=== PATIENT | male | born 2000 | race Caucasian/White ===

== ENCOUNTER 2023-03-14 08:54 | Emergency (ER) | payer BC ==
[2023-03-14 09:03] VITALS: BP 143/91; PULSE 60; RESP 18; TEMP 98
[2023-03-14] MEDS ORDERED: ACET/COD 300 MG/30 MG STARTER PACK 6 TAB BTL PO STA (09:48)
--- NOTE | 2023-03-14 09:55 | ED ---
General Adult HPI - General Chief complaint: Back Pain/Injury Stated complaint: Fall,R Knee/Hip Injury Time Seen by Provider: 03/14/23 09:08 Source: patient, family, RN notes reviewed Mode of arrival: ambulatory Limitations: no limitations - History of Present Illness Initial comments: 23 year-old male with no significant past medical history presents the emergency department with a chief complaint of right knee pain. Patient reports that he was involved in a forklift accident on where he fell from approximately 6 feet onto the forklift. He reports that he landed on his low back and right knee. He was seen and evaluated at the urgent care that day the accident occurred. He reports having negative x-rays. He did not receive any relief at that time. Patient refusing anything for pain and has not been taking anything for pain. He has been applying ice to the area however it provokes a burning sensation. Denies numbness, tingling, weakness in extremities, hematuria, dysuria - Related Data Previous Rx's Medication Instructions Recorded Cyclobenzaprine [Flexeril] 5 mg PO TID PRN #15 tablet 03/14/23 Ibuprofen [Motrin] 800 mg PO Q6HR #30 tab 03/14/23 Allergies Allergy/AdvReac Type Severity Reaction Status Date / Time No Known Allergies Allergy Verified 03/14/23 09:01 Review of Systems ROS Statement: Those systems with pertinent positive or pertinent negative responses have been documented in the HPI. ROS Other: All systems not noted in ROS Statement are negative. Past Medical History Past Medical History: No Reported History History of Any Multi-Drug Resistant Organisms: None Reported Past Surgical History: No Surgical Hx Reported Past Psychological History: No Psychological Hx Reported Smoking Status: Vaper Past Alcohol Use History: None Reported Past Drug Use History: Marijuana General Exam - General Exam Comments Initial Comments: General: Alert, in no acute distress Head: atraumatic normocephalic. Eyes PERRL, EOMI intact, mucous membranes moist Respiratory: Lungs clear to auscultation bilaterally Cardiovascular: Rate regular rate and rhythm Abdominal: Soft without guarding or rebound Extremities: Normal inspection with full range of motion and normal capillary refill, knee without marked erythema or edema. Limited range of motion secondary to pain. Mild tenderness to palpation. No valgus or varus laxity. 2+ ketones/PT pulses. Homans sign negative. Neuroogic: alert and oriented 3, CN II-XII intact, able to ambulate with steady gait Skin: warm dry and intact with normal color Limitations: no limitations Course Vital Signs 03/14/23 08:58 Temperature 98 F Pulse Rate 60 Respiratory 18 Rate Blood Pressure 143/91 O2 Sat by Pulse 99 Oximetry - Reevaluation(s) Reevaluation #1: 03/14/23 09:30 she'll history and physical exam were performed. Patient was offered x-ray imaging however he declined. Patient requesting pain management and knee immobilizer. Medical Decision Making - Medical Decision Making Was pt. sent in by a medical professional or institution (, PA, AIRLINE DISPATCHER, urgent care, hospital, or care home...) When possible be specific @ -[No] Did you speak to anyone other than the patient for history (EMS, parent, family, police, friend...)? What history was obtained from this source @ -[No] Did you review nursing and triage notes (agree or disagree)? Why? @ -[I reviewed and agree with nursing and triage notes] Were old charts reviewed (outside hosp., previous admission, EMS record, old EKG, old radiological studies, urgent care reports/EKG's, care home records)? Report findings @ -[No old charts were reviewed] Differential Diagnosis (chest pain, altered mental status, abdominal pain women, abdominal pain men, vaginal bleeding, weakness, fever, dyspnea, syncope, he adache, dizziness, GI bleed, back pain, seizure, CVA, palpatations, mental health, musculoskeletal)? @ -[not applicable] EKG interpreted by me (3pts min.). @ -[As above] X-rays interpreted by me (1pt min.). @ -[None done] CT interpreted by me (1pt min.). @ -[None done] U/S interpreted by me (1pt. min.). @ -[None done] What testing was considered but not performed or refused? (CT, X-rays, U/S, labs)? Why? @X-rays were offered however patient had negative x-rays on the initial date of the injury. He reports no new injury or symptoms since that time. What meds were considered but not given or refused? Why? @ -[None] Did you discuss the management of the patient with other professionals (professionals i.e. , PA, AIRLINE DISPATCHER, lab, RT, psych nurse, manager social responsibility, button maker and installer, teacher, medical information officer, alteration manager)? Give summary @ -[No] Was smoking cessation discussed for >3mins.? @ -[No] Was critical care preformed (if so, how long)? @ -[No] Were there social determinants of health that impacted care today? How? (Homeles sness, low income, unemployed, alcoholism, drug addiction, transportation, low edu. Level, literacy, decrease access to med. care, [facility], rehab)? @ -[No] Was there de-escalation of care discussed even if they declined (Discuss DNR or withdrawal of care, Hospice)? DNR status @ -[No] What co-morbidities impacted this encounter? (DM, HTN, Smoking, COPD, CAD, Cancer, CVA, ARF, Chemo, Hep., AIDS, mental health diagnosis, sleep apnea, morbid obesity)? @ -[None] Was patient admitted / discharged? Hospital course, mention meds given and route, prescriptions, significant lab abnormalities, going to OR and other pertinent info. @ -Charge. This a 23-year-old male who presents the emergency department with a chief complaint of pain. Patient had a thorough history and physical exam performed. Right knee is without any marked erythema or edema, Limited range of motion secondary to pain. Krystina's sign Negative. 2+ DT/PT pulses. Patient offered imaging however he declined at the time of evaluation. He was provided prescription for Motrin and Tylenol with Codeine. Return precautions discussed at length. Patient given the immobilizer. Patient discharged in stable condition. Case discussed with Dr. resendez, [facility] who agrees with plan of care Undiagnosed new problem with uncertain prognosis? @ -[No] Drug Therapy requiring intensive monitoring for toxicity (Heparin, Nitro, Insulin, Cardizem)? @ -[No] Were any procedures done? @ -[No] Diagnosis/symptom? @ -Right Knee Pain Acute, or Chronic, or Acute on Chronic? @ -Acute Uncomplicated (without systemic symptoms) or Complicated (systemic symptoms)? @ -Uncomplicated Side effects of treatment? @ -[No] Exacerbation, Progression, or Severe Exacerbation? @ -[No] Poses a threat to life or bodily function? How? (Chest pain, [place], [place], pneumonia, PE, COPD, DKA, ARF, appy, cholecystitis, CVA, Diverticulitis, Homicidal, Suicidal, threat to staff... and all critical care pts) @ -low likelihood Disposition Clinical Impression: Mechanical back pain, Internal derangement of right knee Disposition: HOME SELF-CARE Condition: Stable Instructions (If sedation given, give patient instructions): Acute Low Back Pain (ED) Prescriptions: Cyclobenzaprine [Flexeril] 5 mg PO TID PRN #15 tablet PRN Reason: Muscle Spasm Ibuprofen [Motrin] 800 mg PO Q6HR #30 tab Is patient prescribed a controlled substance at d/c from ED?: No Referrals: Alexandre Tavera MD [Primary Care Provider] - 1-2 days Moshe Workman DO [Doctor of Osteopathic Medicine] - 1-2 days Time of Disposition: 09:54
== END 2023-03-14 10:18 | disposition home or self-care (01) ==
LOC: EC 08:54
DX: M23.91 Unspecified internal derangement of right knee (principal); F17.290 Nicotine dependence, other tobacco product, uncomplicated; F12.90 Cannabis use, unspecified, uncomplicated
CPT/HCPCS: 99283; L1830